=== PATIENT | male | born 1965 | race Caucasian/White ===

== ENCOUNTER 2016-12-31 18:59 | Emergency (ER) | payer BC ==
[~2016-12-31] VITALS: Ht 170.2 cm; Wt 61.9 kg
[~2016-12-31 18:59] MED LIST: MOTRIN800 MG PO; PERCOCET 5/31 TABLET PO; PROTONIX40 MG PO
[2016-12-31 19:37] LABS: HEMATOCRIT 46.7 % (38.0-50.0); MCH 28.4 PG (29.0-34.0); MCHC 33.4 G/DL (30.0-36.0); MCV 85.1 FL (86-99); MEAN PLAT.VOLUME 9.2 uM^3 (9.0-12.4); PLATELET COUNT 371 K/uL (156-360); RBC DIS.WIDTH-CV 13.6 % (11.8-14.6); RBC DIS.WIDTH-SD 42.4 % (39-53); RED BLOOD COUNT 5.49 M/uL (4.00-5.50); WHITE BLOOD COUNT 11.4 K/uL (4.1-10.2)
[2016-12-31 19:57] LABS: CHLORIDE 102 mEq/L (99-109); POTASSIUM 4.7 mEq/L (3.7-5.4); SODIUM 137 mEq/L (136-147)
[2016-12-31 19:59] LABS: ADD MIUA? YES; BILIRUBIN NEGATIVE; BLOOD NEGATIVE; COLOR YELLOW ((YELLOW)); GLUCOSE (STRIP) NEGATIVE; KETONES 5; LEUKOCYTES NEGATIVE; NITRITE NEGATIVE; PROTEIN (STRIP) 30; SPECIFIC GRAVITY 1.025 (1.000-1.030); UROBILINOGEN 0.2 MG/DL (0.2-1.0)
[2016-12-31 19:59] LABS: GLUCOSE 108 mg/dL (70-99)
[2016-12-31 20:01] LABS: ANION GAP 11 MEQ/L (2-14); TOTAL BILIRUBIN 0.4 mg/dL (0.0-1.0)
[2016-12-31 20:03] LABS: ALKALINE PHOSPHATASE 96 IU/L (3-129); GFR ESTIMATE (CALCULATED) > 59 mL/min/
[2016-12-31 20:04] LABS: UREA NITROGEN (BUN) 11 mg/dL (9-23)
[2016-12-31 20:17] LABS: BACTERIA NONE SEEN /HPF; EPITHELIAL CELLS NONE SEEN /HPF; HYALINE CASTS 0-5 /LPF; MUCUS 4+ /LPF; UCUL ADDED? NO; WHITE BLOOD CELLS 0-5 /HPF (0-5)
[2016-12-31 22:46] LABS: TROP-I INTERPRETATION NEGATIVE; TROPONIN-I < 0.01 ng/mL (0.0-0.30)
[2016-12-31] MEDS ORDERED: TRAZODONE HCL50 MG PO (23:56)
[2016-12-31] MEDS ORDERED: BENTYL20 MG PO (23:56)
[2016-12-31] MEDS ORDERED: CLONIDINE HCL0.1 MG PO (23:56)
[2016-12-31] MEDS ORDERED: ZOFRAN ODT4 MG PO (23:56)
[2017-01-01 02:55] VITALS: BP 145/85
== END 2017-01-01 02:56 | disposition home or self-care (01) ==
LOC: EME 18:59
PROVIDERS: Physician Assistant
DX: K52.9 Noninfective gastroenteritis and colitis, unspecified (principal); Z79.891 Long term (current) use of opiate analgesic; Z91.14 Patient's other noncompliance with medication regimen; K21.9 Gastro-esophageal reflux disease without esophagitis; F17.200 Nicotine dependence, unspecified, uncomplicated
CPT/HCPCS: 74177; 80053; 81003; 84484; 85027; 93005; 99281; 99285; J2060; J2405; J3010; J7030; S0028